=== PATIENT | male | born 1995 | race Caucasian/White ===

== ENCOUNTER 2017-02-17 09:55 | Emergency (ER) | payer OTHER ==
[~2017-02-17] VITALS: Ht 172.7 cm; Wt 65.8 kg
[2017-02-17 09:55] VITALS: BP 122/48
[2017-02-17] MEDS ORDERED: GELATIN SPONGE,ABSORBABLE 1 SPONGE SPONGE TP ONE ×2 (09:58→10:30)
[2017-02-17] MEDS ORDERED: SILVER NITRATE APPLICATOR 1 EA BOX ONE (09:58)
--- NOTE | 2017-02-17 10:20 | NUR ---
Patient discharged to in stable condition. Written and verbal after care instructions given. Patient verbalizes understanding of instruction. Ambulated out of ER in police custody.
[2017-02-17] MEDS ORDERED: SILVER NITRATE APPLICATOR 1 EA BOX TP ONE (10:30)
== END 2017-02-17 10:21 | disposition home or self-care (01) ==
LOC: ER 09:56
DX: S60.311A Abrasion of right thumb, initial encounter (principal); W22.8XXA Striking against or struck by other objects, initial encounter; Y93.89 Activity, other specified; Y92.89 Other specified places as the place of occurrence of the external cause; Y99.8 Other external cause status
CPT/HCPCS: 99283; A4606; Z7610

== ENCOUNTER 2020-06-27 15:05 | Emergency (ER) | payer OTHER ==
[~2020-06-27] VITALS: Ht 180.3 cm; Wt 72.6 kg
[2020-06-27 15:24] VITALS: BP 117/71
== END 2020-06-27 15:55 ==
LOC: ER 15:05
DX: Z02.89 Encounter for other administrative examinations (principal); Z60.2 Problems related to living alone; Y08.89XA Assault by other specified means, initial encounter; Y93.89 Activity, other specified; Y92.89 Other specified places as the place of occurrence of the external cause; Y99.8 Other external cause status